=== PATIENT | female | born 1960 ===

== ENCOUNTER 2016-09-14 10:02 | Day surgery (SDC) | payer OTHER ==
[2016-09-08 11:43] VITALS: BMI 31.2
[2016-09-14 10:59] LABS: ADD MANUAL DIFF? NO
[2016-09-14 11:02] LABS: BASO # 0.02 K/mm3 (0.0-2.0); BASO % 0.2 % (0.0-3.0); EOS # 0.3 (0.0-0.7); EOS % 3.5 % (1.5-5.0); GRAN % 63.2 % (50.0-68.0); HEMATOCRIT 38.8 % (36.0-48.0); LYMPH # 2.4 (1.2-3.4); LYMPH % 26.2 % (22.0-35.0); MEAN CELL VOLUME 90.4 fL (80.0-105.0); MEAN CORPUSCULAR HEMOGLOBIN 30.5 pg (25.0-35.0); MEAN CORPUSCULAR HGB CONC 33.8 g/dl (31.0-37.0); MONO # 0.6 (0.1-0.6); MONO % 6.9 % (1.0-6.0); PLATELET COUNT 298 10^3/uL (120.0-450.0); RED CELL DISTRIBUTION WIDTH 14.5 % (11.5-14.5); WHITE BLOOD COUNT 9.2 10^3/ul (4.5-11.0)
[2016-09-14 11:17] LABS: ALB/GLOB RATIO 1.2 (1.1-1.8); ALKALINE PHOSPHATASE 131 U/L (38-133); ALT/SGPT 71 U/L (7-56); AST/SGOT 44 U/L (15-39); BILIRUBIN,TOTAL 0.7 mg/dL (0.2-1.3); BLOOD UREA NITROGEN 11 mg/dL (7-21); CALCIUM 9.5 mg/dL (8.4-10.5); CARBON DIOXIDE 31 mmol/L (21-33); CHLORIDE 100 mmol/L (98-107); GFR AFRICAN-AMERICAN > 60; GLUCOSE,RANDOM 98 mg/dL (70-110); POTASSIUM 3.8 mmol/L (3.6-5.0); SODIUM 139 mmol/L (132-148); TOTAL PROTEIN 8.1 g/dL (5.8-8.3)
[2016-09-14 11:20] LABS: INR 1.03 (0.93-1.08); PARTIAL THROMBOPLASTIN TIME 27.3 Seconds (23.7-30.8)
[2016-09-14] MEDS ORDERED: Propofol 10 mg/ml Inj (20 ML) ONE ×2 (12:05→12:28)
[2016-09-14] MEDS ORDERED: Lactated Ringer's 1,000 ML IV SCH (12:47)
[2016-09-14 13:13] VITALS: RESP 16
[2016-09-14 13:30] VITALS: BP 105/61; PULSE 59; TEMP 97.5; O2SAT 98
== END 2016-09-14 14:40 | disposition home or self-care (01) ==
LOC: ENDO 10:02
PROVIDERS: ATTEND Internal Medicine
DX: K29.50 Unspecified chronic gastritis without bleeding (principal); K83.8 Other specified diseases of biliary tract; K86.89 Other specified diseases of pancreas; E78.5 Hyperlipidemia, unspecified
CPT/HCPCS: 36415; 43239; 43259; 80053; 85025; 85610; 85730; 88305; 88342; J2001; J2704; J3010; J7040; J7120